=== PATIENT | female | born 1990 ===

== ENCOUNTER 2016-12-26 01:47 | Emergency (ER) | payer MEDICAID ==
[2016-12-26 01:47] VITALS: BMI 41.3
[2016-12-26 02:05] VITALS: BP 124/85
[2016-12-26] MEDS ORDERED: Oxycodone/Acetaminophen 5/325 mg Tab PO STA (03:05)
--- NOTE | 2016-12-26 03:09 | C.PDOC ---
History Of Present Illness <Isela Etienne - Last Filed: 12/26/16 06:32> <Calli Soriano - Last Filed: 01/12/17 09:29> 26 year old patient presents to the ED complaining of left upper molar pain. Patient was seen by her dentist 5 days ago for a culture and dental work to be done on the left upper molar. Patient was sent home with Clindamycin 150 mg. Today, patient complains of moderate swelling and pain to the left facial area. Patient denies any trauma, fever, headache or neck pain. (Isela Etienne) History Per: Patient History/Exam Limitations: no limitations Onset/Duration Of Symptoms: Worse Since (today) Current Symptoms Are (Timing): Still Present Severity: Moderate Pain Scale Rating Of: 4 Quality: Positive for: "Pain" <Isela Etienne - Last Filed: 12/26/16 06:32> <Calli Soriano - Last Filed: 01/12/17 09:29> Time Seen by Provider: 12/26/16 02:29 Chief Complaint (Nursing): Dental Pain Past Medical History Reviewed: Historical Data, Nursing Documentation, Vital Signs Surgical History: Cholecystectomy Family History: States: Unknown Family Hx - Social History Hx Tobacco Use: No Hx Alcohol Use: Yes Hx Substance Use: No - Immunization History Hx Tetanus Toxoid Vaccination: No Hx Influenza Vaccination: No Hx Pneumococcal Vaccination: No <Isela Etienne - Last Filed: 12/26/16 06:32> Review Of Systems Except As Marked, All Systems Reviewed And Found Negative. Constitutional: Negative for: Fever ENT: Positive for: Other (left facial pain and swelling) Musculoskeletal: Negative for: Neck Pain Neurological: Negative for: Headache <Isela Etienne - Last Filed: 12/26/16 06:32> Physical Exam - Physical Exam Appears: Non-toxic, No Acute Distress Skin: Warm, Dry Head: Atraumatic, Normacephalic, Other (minimal left facial swelling) Eye(s): bilateral: PERRL, EOMI Nose: Normal Oral Mucosa: Moist Tongue: Normal Appearing Lips: Normal Appearing Teeth: Other (temporary plaster filling in the left upper molar) Gingiva: Erythema (localized), Swelling (minimal), Tender (left upper gingival area) Throat: Normal, No Erythema, No Exudate Neck: Normal ROM, Supple Chest: Symmetrical Cardiovascular: Rhythm Regular Respiratory: Normal Breath Sounds, No Rales, No Rhonchi, No Wheezing <Isela Etienne - Last Filed: 12/26/16 06:32> ED Course And Treatment O2 Sat by Pulse Oximetry: 100 (RA) Pulse Ox Interpretation: Normal Progress Note: Percocet given. Patient is advised to take 300 mg of the Clindamycin and to follow up with dentist in 1-2 days. Return if symptoms worsen. <Isela Etienne - Last Filed: 12/26/16 06:32> Disposition Counseled Patient/Family Regarding: Diagnosis, Need For Followup, Rx Given - Disposition Disposition Time: 03:06 <Isela Etienne - Last Filed: 12/26/16 06:32> <Calli Soriano - Last Filed: 01/12/17 09:29> - Disposition Referrals: Dentist, Private [Other] Disposition: HOME/ ROUTINE Condition: STABLE Additional Instructions: Please follow up with dentist as soon as possible Increase clindamycin to 2 tabs every 6h Follow up with dentist Return to ER if increasing swelling in mouth or face, fever, neck swelling, difficulty breathing or worse Prescriptions: oxyCODONE/Acetaminophen [Percocet 5/325 mg Tab] 1 tab PO QID PRN #10 tab PRN Reason: Pain Instructions: Dental Abscess (ED) - Clinical Impression Clinical Impression: Dental abscess - PA / SPINNING LATHE OPERATOR / Resident Statement / has reviewed & agrees with the documentation as recorded. - Scribe Statement The provider has reviewed the documentation as recorded by the Scribe <Isela Etienne - Last Filed: 12/26/16 06:32> - PA / SPINNING LATHE OPERATOR / Resident Statement / has reviewed & agrees with the documentation as recorded. <Calli Soriano - Last Filed: 01/12/17 09:29> - Scribe Statement Jennifer Marks All medical record entries made by the Scribe were at my direction and personally dictated by me. I have reviewed the chart and agree that the record accurately reflects my personal performance of the history, physical exam, medical decision making, and the department course for this patient. I have also personally directed, reviewed, and agree with the discharge instructions and disposition. (Isela Etienne)
[2016-12-26] MEDS ORDERED: Oxycodone/Acetaminophen 5/325 mg Tab ONE (03:10)
[2016-12-26 03:18] VITALS: PULSE 75; RESP 18; TEMP 98.8
[2016-12-26 06:29] VITALS: O2SAT 100
== END 2016-12-26 03:18 | disposition home or self-care (01) ==
LOC: C.ER 01:47
DX: K04.7 Periapical abscess without sinus (principal)

== ENCOUNTER 2017-01-21 22:55 | Emergency (ER) | payer MEDICAID ==
[2017-01-21 22:55] VITALS: BMI 41.3
--- NOTE | 2017-01-21 23:43 | C.PDOC ---
History Of Present Illness 26 y/o female presents to ED with c/o lower tooth ache for 4 days. Patient reports she has been intermittent upper tooth pain for the past month, noting she finished dose of abx 2 weeks ago. Patient states she was scheduled for root canal but was unable to have it done due to insurance issues. Otherwise, denies fevers, chills, or other associated symptoms. Notes she has taken Motrin with no relief. Time Seen by Provider: 01/21/17 23:12 Chief Complaint (Nursing): Dental Pain History Per: Patient History/Exam Limitations: no limitations Onset/Duration Of Symptoms: Days Current Symptoms Are (Timing): Still Present Quality: Positive for: "Pain" Recent travel outside of the [place]: No Past Medical History Reviewed: Historical Data, Nursing Documentation, Vital Signs Vital Signs: Last Vital Signs Temp 98.3 F 01/22/17 00:01 Pulse 83 01/22/17 00:01 Resp 18 01/22/17 00:01 BP 132/72 01/22/17 00:01 Pulse Ox 100 01/22/17 00:54 Surgical History: Cholecystectomy - [facility] Procedures ESOPHAGOGASTRODUODENOSCOPY [EGD] W/CLOSED BIOPSY (12/17/14) INJECT/INFUSE NEC (03/14/15) Family History: States: Unknown Family Hx - Social History Hx Tobacco Use: No Hx Alcohol Use: No Hx Substance Use: No - Immunization History Hx Tetanus Toxoid Vaccination: No Hx Influenza Vaccination: No Hx Pneumococcal Vaccination: No Review Of Systems Except As Marked, All Systems Reviewed And Found Negative. Constitutional: Negative for: Fever, Chills ENT: Positive for: Mouth Pain (lower dental pain ). Negative for: Throat Pain Gastrointestinal: Negative for: Nausea, Vomiting Skin: Negative for: Rash Physical Exam - Physical Exam Appears: Non-toxic, No Acute Distress Skin: Normal Color, Warm, Dry Head: Atraumatic, Normacephalic Eye(s): bilateral: Normal Inspection, PERRL, EOMI Ear(s): Bilateral: Normal Nose: Normal Oral Mucosa: Moist Teeth: Caries (left posterior molar lower), Tender To Palpation (left lower molar) Gingiva: Erythema (erythema posterior left molar, no gross fluctuance/swelling ) , No Swelling, No Abscess Throat: Normal, No Erythema, No Exudate, No Drooling Neck: Supple Neurological/Psych: Oriented x3, Normal Speech, Normal Cognition ED Course And Treatment O2 Sat by Pulse Oximetry: 100 (RA) Pulse Ox Interpretation: Normal Progress Note: Treated with Percocet. On reassessment, patient is resting comfortably, and is in no acute distress. Patient reports improvement of pain. Instructed to follow up with dentist within 1-2 days. Disposition - Disposition Disposition: HOME/ ROUTINE Disposition Time: 23:39 Condition: STABLE Additional Instructions: Please follow up with dentist at [facility] in [place] Return to ER if worse Prescriptions: Acetaminophen with Codeine [Tylenol with Codeine #3 Tablet] 2 each PO QID #16 tablet Clindamycin [Cleocin] 300 mg PO QID #28 cap Instructions: Dental Abscess (ED) Forms: [employer] Discharge (Jamaican) - Clinical Impression Clinical Impression: Dental abscess - PA / GUT CARRIER / Resident Statement MD/DO has reviewed & agrees with the documentation as recorded. - Scribe Statement The provider has reviewed the documentation as recorded by the Jonathan Moreau Provider Scribe Attestation: All medical record entries made by the Jonathan were at my direction and personally dictated by me. I have reviewed the chart and agree that the record accurately reflects my personal performance of the history, physical exam, medical decision making, and the department course for this patient. I have also personally directed, reviewed, and agree with the discharge instructions and disposition.
[2017-01-22 00:06] VITALS: BP 132/72; PULSE 83; RESP 18; TEMP 98.3
[2017-01-22] MEDS ORDERED: Oxycodone/Acetaminophen 5/325 mg Tab PO STA (00:48)
[2017-01-22 00:55] VITALS: O2SAT 100
[2017-01-22] MEDS ORDERED: Oxycodone/Acetaminophen 5/325 mg Tab ONE (00:57)
== END 2017-01-22 00:06 | disposition home or self-care (01) ==
LOC: C.ER 22:55
DX: K04.7 Periapical abscess without sinus (principal)

== ENCOUNTER 2017-06-09 19:49 | Emergency (ER) | payer MEDICAID ==
[2017-06-09 19:49] VITALS: BMI 41.3
[2017-06-09 19:58] VITALS: RESP 20
--- NOTE | 2017-06-09 21:25 | C.PDOC ---
History Of Present Illness 26 year old female presents to the ED for evaluation of pain and swelling to her right lower jaw which began a couple days ago. Patient is unable to tell which tooth is causing her symptoms. Patient also notes her last menstrual period was on 04/21/17 and she had a positive test at home. Patient denies fever, chills, abdominal pain, vaginal bleeding, and has no - related complaints at this time. Time Seen by Provider: 06/09/17 20:17 Chief Complaint (Nursing): Dental Pain History Per: Patient History/Exam Limitations: no limitations Onset/Duration Of Symptoms: Days Current Symptoms Are (Timing): Still Present Quality: Positive for: Aching, "Pain" Additional History Per: Patient Past Medical History Reviewed: Historical Data, Nursing Documentation, Vital Signs Vital Signs: Last Vital Signs Temp 98.3 F 06/09/17 21:37 Pulse 82 06/09/17 21:37 Resp 20 06/09/17 21:37 BP 112/68 06/09/17 21:37 Pulse Ox 100 06/10/17 01:10 - Medical History PMH: No Chronic Diseases Surgical History: Cholecystectomy - [facility] Procedures ESOPHAGOGASTRODUODENOSCOPY [EGD] W/CLOSED BIOPSY (12/17/14) INJECT/INFUSE NEC (03/14/15) Family History: States: Unknown Family Hx - Social History Hx Tobacco Use: No Hx Alcohol Use: No Hx Substance Use: No - Immunization History Hx Tetanus Toxoid Vaccination: No Hx Influenza Vaccination: No Hx Pneumococcal Vaccination: No Review Of Systems Constitutional: Negative for: Fever, Chills ENT: Positive for: Mouth Pain (to right lower jaw, with swelling ) Gastrointestinal: Negative for: Abdominal Pain Genitourinary: Negative for: Vaginal Discharge Physical Exam - Physical Exam Appears: Non-toxic, No Acute Distress Skin: Normal Color, Warm, Dry Head: No Atraumatic, Swelling (mild, to right lower jaw region ) Eye(s): bilateral: Normal Inspection Oral Mucosa: Moist Teeth: Caries (multiple to right lower jaw ) Neck: Supple Extremity: Normal ROM Neurological/Psych: Oriented x3, Normal Speech, Normal Cognition Gait: Steady ED Course And Treatment O2 Sat by Pulse Oximetry: 100 (on RA) Pulse Ox Interpretation: Normal Progress Note: Patient states she is allergic to Penicillin, and states she has a "bad reaction" when she takes it. According to [place] [employer], Clindamycin is categorized as Category B for . Patient received Clindamycin PO. On reassessment, patient is resting comfortably, showing no signs of distress and reports an improvement in her symptoms. Patient is stable for discharge and is advised to follow up with dental care within 1-2 days for further evaluation. Disposition - Disposition Disposition: HOME/ ROUTINE Disposition Time: 21:21 Condition: STABLE Additional Instructions: Follow up with your Dentist within 1-2 days. Return to Ed if feel worse. Prescriptions: Clindamycin [Cleocin] 150 mg PO Q6 #28 cap Acetaminophen with Codeine [Tylenol with Codeine #3 Tablet] 1 each PO .Q4-6H # 20 tablet Instructions: Dental Abscess (ED) Forms: [employer] (Bangladeshi) - Clinical Impression Clinical Impression: Dental abscess - PA / ASSISTANT STATISTICIAN / Resident Statement MD/DO has reviewed & agrees with the documentation as recorded. - Scribe Statement The provider has reviewed the documentation as recorded by the Scribe (Shaye Marks) All medical record entries made by the Scribe were at my direction and personally dictated by me. I have reviewed the chart and agree that the record accurately reflects my personal performance of the history, physical exam, medical decision making, and the department course for this patient. I have also personally directed, reviewed, and agree with the discharge instructions and disposition.
[2017-06-09 21:39] VITALS: BP 112/68; PULSE 82; TEMP 98.3
[2017-06-10 01:05] VITALS: O2SAT 100
== END 2017-06-09 21:36 | disposition home or self-care (01) ==
LOC: C.ER 19:49
DX: K04.7 Periapical abscess without sinus (principal)